=== PATIENT | female | born 1945 | race Caucasian/White ===

== ENCOUNTER 2017-04-22 11:16 | Emergency (ER) | payer MEDICARE, OTHER ==
[~2017-04-22] VITALS: Ht 162.6 cm; Wt 83.6 kg
[~2017-04-22 11:16] MED LIST: ALPR0.25 PO; AMLO5TAB22 PO; ASPI325T PO; CALC-179 PO; COZA100T PO; FISH1000 PO; HYDR-2768 PO; LORTA5 PO; METF500 PO; METO25 PO; MEVA40TA PO; OMEP20TA39 PO; SYNT125T PO; VITA400C70 PO; Z.0.COMMODE-3:1; Z.0.WALKERFRONT
[2017-04-22 11:19] VITALS: BP 141/88; PULSE 88; RESP 16; TEMP 97.9; O2SAT 97
[2017-04-22] MEDS ORDERED: PHENAZOPYRIDINE HCL 100 MG TAB PO ONE (11:45)
[2017-04-22] MEDS ORDERED: CEPHALEXIN MONOHYDRATE 500 MG CAP PO ONE (11:45)
--- NOTE | 2017-04-22 11:45 | PD ---
HPI Chief Complaint: Abdominal Pain Time Seen by Provider: 11:30 Travel History International Travel<30 days: No Contact w/Intl Traveler<30days: No Traveled to known affect area: No History of Present Illness HPI 72-year-old female complains of lower abdominal discomfort, dysuria, frequency and hematuria. Patient states the symptoms started yesterday. Patient denies any fever chills. Patient denies any back pain. Patient denies any nausea vomiting diarrhea. Patient has history of allergies to many antibiotics. Patient does not remember ever take Keflex or cephalosporin families. Patient states that she had itching rash with penicillin. PFSH Past Medical History Hx Anticoagulant Therapy: Yes (BABY ASA DAILY) Anxiety: Yes Cancer: No Cardiovascular Problems: Yes (HTN, CHOL) High Cholesterol: Yes Diabetes: Yes Patient Takes Glucophage: Yes Endocrine: Yes Gastrointestinal Disorders: Yes (GASTROPARESIS HX, HX COLITIS, GERD) Genitourinary: Yes (FREQUENCY) Hepatitis: No Hiatal Hernia: No Hypertension: Yes Immune Disorder: No Medical other: No Musculoskeletal: Yes (ARTHRITIS, OSTEOPENIA) Neurologic: No Psychiatric: Yes (ANXIETY) Reproductive: No Respiratory: No Immunizations Current: Yes Thyroid Disease: Yes Tetanus Vaccination: > 5 Years Influenza Vaccination: Yes ?: Not Past Surgical History AICD: No Gynecologic Surgery: Yes (HYSTERECTOMY, RECTOVAG. FISTULA REP) Hysterectomy: Yes (PARTIAL) Joint Replacement: No Oral Surgery: Yes (T&A) Pacemaker: No Tonsillectomy: Yes Tympanostomy Tube: Yes Other Surgery: Yes Social History Alcohol Use: Yes (OCCASIONAL) Tobacco Use: No (QUIT 2008) Substance Use: No Allergies-Medications (Allergen,Severity, Reaction): Coded Allergies: nitrofurantoin (Unverified Allergy, Severe, TINGLING/NUMBNESS ALL OVER, ) penicillin G (Unverified Allergy, Mild, 04/22/17) ITCH, RASH Sulfa (Sulfonamide Antibiotics) (Unverified Allergy, Unknown, 04/22/17) ciprofloxacin (Unverified Adverse Reaction, Severe, NAUSEA, 04/22/17) Reported Meds & Prescriptions Reported Meds & Active Scripts Active Reported Vitamin E 200 Unit Cap 200 Units PO DAILY Calcium 600 with Vitamin D (Calcium Carbonate-Cholecalciferol) 600-400 mg-Unit Tab 1 Tab PO DAILY [place]-3 Fish Oil/Vitamin (Fish Oil-Cholecalciferol) 1,000-1,000 Mg Cap 1 Cap PO DAILY Amlodipine (Amlodipine Besylate) 10 Mg Tab 10 Mg PO DAILY Metformin (Metformin HCl) 500 Mg Tab 500 Mg PO BIDPC Omeprazole 20 Mg Tab 20 Mg PO DAILY Alprazolam 0.25 Mg Tab 0.25 Mg PO Q8H PRN Lovastatin 40 Mg Tab 40 Mg PO HS Losartan (Losartan Potassium) 100 Mg Tab 100 Mg PO DAILY Levothyroxine (Levothyroxine Sodium) 125 Mcg Tab 125 Mcg PO DAILY Hydrochlorothiazide 25 Mg Tab 25 Mg PO DAILY Review of Systems General / Constitutional: No: Fever Eyes: No: Visual changes HENT: No: Headaches Cardiovascular: No: Chest Pain or Discomfort Respiratory: No: Shortness of Breath Gastrointestinal: No: Abdominal Pain Genitourinary: No: Dysuria Musculoskeletal: No: Pain Skin: Positive Rash, Positive Itching Neurologic: No: Weakness Psychiatric: No: Depression Endocrine: No: Polydipsia Hematologic/Lymphatic: No: Easy Bruising Physical Exam Narrative GENERAL: Well-nourished, well-developed patient. SKIN: Focused skin assessment warm/dry. HEAD: Normocephalic. EYES: No scleral icterus. No injection or drainage. NECK: Supple, trachea midline. No JVD or lymphadenopathy. CARDIOVASCULAR: Regular rate and rhythm without murmurs, gallops, or rubs. RESPIRATORY: Breath sounds equal bilaterally. No accessory muscle use. GASTROINTESTINAL: Abdomen soft, non-tender, nondistended. MUSCULOSKELETAL: No cyanosis, or edema. BACK: Nontender without obvious deformity. No CVA tenderness. Neurologic exam normal. Data Data Last Documented VS Vital Signs Date Time Temp Pulse Resp B/P (MAP) Pulse Ox O2 Delivery O2 Flow Rate FiO2 04/22/17 11:19 97.9 88 16 141/88 (105) 97 Orders Orders Urinalysis - C+S If Indicated (04/22/17 11:21) Cephalexin (Keflex) (04/22/17 11:45) Phenazopyridine (Pyridium) (04/22/17 11:45) MDM Medical Decision Making Medical Screen Exam Complete: Yes Emergency Medical Condition: Yes Differential Diagnosis Differential diagnosis including UTI, hemorrhagic cystitis, nephrolithiasis, pyelonephritis. Narrative Course 72-year-old female with dysuria, frequency and hematuria. Patient has allergies to many antibiotics. Keflex 500 mg p.o. given. Pyridium 100 mg p.o. given. Diagnosis Primary Impression: Hemorrhagic cystitis Patient Instructions: General Instructions Additional Instructions: Keflex as directed. Pyridium as directed. Encourage p.o. fluid. Follow-up with local physician. Return if worse. Med/Other Pt SpecificInfo: Prescription(s) given Scripts Phenazopyridine (Pyridium) 100 Mg Tab 100 MG PO Q8H Y for DYSURIA, #10 TAB 0 Refills Prov: Peter Monk MD 04/22/17 Cephalexin (Keflex) 500 Mg Capsule 500 MG PO QID for Infection, #28 CAP 0 Refills Prov: Peter Monk MD 04/22/17 Disposition: 01 DISCHARGE HOME Condition: Stable Peter Monk MD Apr 22, 2017 11:45
[2017-04-22] MEDS ORDERED: AMLO10TA2 PO (11:46)
[2017-04-22] MEDS ORDERED: VITA200C3 PO (11:46)
[2017-04-22] MEDS ORDERED: ALPR0.25 PO (11:46)
[2017-04-22] MEDS ORDERED: LOSA100T PO (11:46)
[2017-04-22] MEDS ORDERED: LEVO125T4 PO (11:46)
[2017-04-22] MEDS ORDERED: OMEGCAP PO (11:46)
[2017-04-22] MEDS ORDERED: METF500T PO (11:46)
[2017-04-22] MEDS ORDERED: LOVA40TA PO (11:46)
[2017-04-22] MEDS ORDERED: HYDR25TA5 PO (11:46)
[2017-04-22] MEDS ORDERED: OMEP20TA93 PO (11:46)
[2017-04-22] MEDS ORDERED: CALC1TAB87 PO (11:46)
[2017-04-22] MEDS ORDERED: PHEN0.4T PO (11:47)
[2017-04-22] MEDS ORDERED: CEPH-460 PO (11:47)
[2017-04-22 11:55] LABS: BLOOD, URINE LARGE (NEG); GLUCOSE,URINE NEG (NEG); KETONE, URINE 15 mg/dL (NEG); NITRITE,URINE NEG (NEG); URINE LEUKOCYTE ESTERASE MOD (NEG)
[2017-04-22 11:59] LABS: BILIRUBIN, URINE NEG (NEG); URINE COLOR DARK-YELLOW (YELLW/STRAW)
[2017-04-22 12:11] LABS: RBC, URINE 100-200 /hpf (0-3); SQUAMOUS EPITHELIAL CELL URINE 0-5 /hpf (0-5); WBC, URINE 15-19 /hpf (0-5)
[2017-04-22 12:12] LABS: BACTERIA, URINE FEW /hpf
== END 2017-04-22 12:35 | disposition home or self-care (01) ==
LOC: PHED 11:16
DX: N30.91 Cystitis, unspecified with hematuria (principal); B96.20 Unspecified Escherichia coli [E. coli] as the cause of diseases classified elsewhere; I10 Essential (primary) hypertension; E11.9 Type 2 diabetes mellitus without complications; E07.9 Disorder of thyroid, unspecified; K21.9 Gastro-esophageal reflux disease without esophagitis; E78.00 Pure hypercholesterolemia, unspecified; F41.9 Anxiety disorder, unspecified; Z79.82 Long term (current) use of aspirin; Z79.84 Long term (current) use of oral hypoglycemic drugs; Z87.19 Personal history of other diseases of the digestive system; Z87.39 Personal history of other diseases of the musculoskeletal system and connective tissue
CPT/HCPCS: 81001; 87077; 87086; 87186; 99283